=== PATIENT | male | born 1950 | race Caucasian/White ===

== ENCOUNTER 2021-11-25 13:00 | Outpatient (RCR) | payer MEDICARE, OTHER, SELFPAY ==
--- NOTE | 2021-11-11 14:30 | RT.EKG_ITS ---
APPROVED REPORT Exam: Resting ECG Reason for Exam: CARDIAC REHAB BASELINE EKG Patient Location: O HR:73 bpm ECG Measurements Heart Rate 73 AXIS ND 186 P 73 QRSd 121 QRS -4 QT 393 T 70 QTc 433 Conclusion Sinus rhythm...normal P axis, V-rate 50- 99 Ventricular premature complex...V complex w/ short R-R interval Left bundle branch block...QRSd>120, broad/notched R
== END 2021-11-26 23:59 | disposition home or self-care (01) ==
LOC: CR 13:00
PROVIDERS: PCP Family Medicine; Visit Provider Family Medicine
DX: Z51.89 Encounter for other specified aftercare (principal); I25.2 Old myocardial infarction; Z95.5 Presence of coronary angioplasty implant and graft; Z95.0 Presence of cardiac pacemaker
CPT/HCPCS: S9472

== ENCOUNTER 2021-12-14 13:00 | Outpatient (RCR) | payer MEDICARE, OTHER, SELFPAY ==
--- NOTE | 2021-12-14 13:45 | RT.EKG_ITS ---
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
== END 2021-12-26 23:59 | disposition home or self-care (01) ==
LOC: CR 13:00
PROVIDERS: PCP Family Medicine; Visit Provider Internal Medicine Cardiovascular Disease
DX: Z51.89 Encounter for other specified aftercare (principal); I25.2 Old myocardial infarction; Z95.5 Presence of coronary angioplasty implant and graft; Z95.0 Presence of cardiac pacemaker
CPT/HCPCS: S9472

== ENCOUNTER 2021-12-14 14:20 | Emergency (ER) | payer MEDICARE, OTHER, SELFPAY ==
[2021-12-14] VITALS (53 sets, daily range): BP systolic 109–145; BP diastolic 56–93; PULSE 61–102; RESP 10–20; TEMP 36.8–37.2; O2SAT 97–100
--- NOTE | 2021-12-14 14:30 | RT.EKG_ITS ---
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
--- NOTE | 2021-12-14 14:30 | RT.EKG_ITS ---
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
[2021-12-14] MEDS: Aspirin 81 MG CHEW 243 MG CH (14:47)
[2021-12-14 14:52] LABS: Abs Immature Grans 0.01 10^3/uL (0.0-0.06); Absolute Basophil Count 0.04 10^3/uL (0.0-0.2); Absolute Eosinophil Count 0.29 10^3/uL (0.0-0.7); Absolute Lymphocyte Count 1.42 10^3/uL (1.2-3.4); Absolute Monocyte Count 0.79 10^3/uL (0.1-0.8); Absolute Neutrophil Count 3.87 10^3/uL (1.2-6.7); Basophils % 0.6; Eosinophils % 4.5; HCT 42.8 % (40.0-50.0); HGB 13.7 g/dL (13.5-17.5); Immature Grans % 0.2; Lymphocytes % 22.1; MCH 29.7 pg (27.0-33.0); MCV 92.6 fL (80-95); MPV 9.4 fL (8.0-11.0); Monocytes % 12.3; Neutrophils % 60.3; Platelet Count 281 10^3/uL (130-400); RBC 4.62 10^6/uL (4.36-5.78); RDW 12.8 % (11.8-14.1); RDW-SD 43.2 fL; WBC 6.42 10^3/uL (4.4-10.8)
--- NOTE | 2021-12-14 14:59 | ED.GENADUL_ITS ---
Discharge Plan Disposition Patient Disposition: HOME Condition: Stable Discharge Details Clinical Impression: Chest pain Primary Care Provider: Guerrero Rascon ED Provider: Gavino Raines Home Meds and New Rx's Prescriptions: Continued epinephrine [EpiPen] 0.3 mg/0.3 mL auto-injector 0.3 mg IM Q5-15M PRN0RF Rx Instructions: do not exceed 3 doses per episode omega-3 fatty acids [Fish Oil Concentrate] 1,000 mg capsule 1,000 mg PO DAILY 0RF lutein 20 mg capsule 20 mg PO DAILY 0RF Rx Instructions: give with meal/snack aspirin [Adult Low Dose Aspirin] 81 mg tablet,delayed release (DR/EC) 81 mg PO DAILY 0RF atorvastatin 80 mg Tablet 80 mg PO DAILY 0RF pantoprazole 40 mg Tablet,Delayed Release (Dr/Ec) 40 mg PO DAILY 0RF nitroglycerin 0.4 mg Tablet, Sublingual 0.4 mg SUBLINGUAL Q5-15M PRN0RF Rx Instructions: do not exceed 3 doses per episode metoprolol succinate 25 mg Tablet Extended Release 24 Hr 25 mg PO DAILY 0RF cholecalciferol (vitamin D3) [Vitamin D3] 125 mcg (5,000 unit) Tablet 125 mcg PO DAILY 0RF Brilinta 90 mg Tablet 90 mg PO Q12H 0RF Discharge Instructions Instructions: Chest Pain (ED) Additional Instructions: Your rapid cardiac rule out here in the ER was negative, your troponin did not trend upward. You have been asymptomatic the entire time you have been present in the ER. I discussed the case with cardiology from [facility], Dr. Joy. As we discussed he felt as though the most cautious approach would be to admit you to our hospital overnight for observation and to obtain a stress echo tomorrow. However, if you request discharge, he recommends contacting your primary care provider and/or regional production manager to have an outpatient stress echo in the next 24-48 hours. Being discharged does run a higher risk of a bad outcome, including permanent impairment and/or , which you understand and still request discharge. Please watch for new or worsening symptoms and return to the ER for any concerns. Discharge Data Discharge Date/Time-TO BE ENTERED AT DEPARTURE: 12/14/21 20:13 Medical Decision Making Patient is a pleasant 71-year-old male, accompanied by significant other, with chief complaint chest discomfort, fatigue and EKG changes. Patient underwent a cardiac catheterization September 17 of this year. 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 Patient then underwent care with home health and physical therapy. Recently began working with cardiac rehab. Patient was coming in today for routine cardiac rehab and was found to have more fatigability than typical. Patient does have some burning in his chest when he exerts. states that this has been persistent with catheterization in August. However, while the burning in the chest was the same as it has been since his recent PR, it seemed to come on with less exertion than typical. He states that he has been fatigued. Reports that the symptoms have worsened since he received his COVID-19 booster on Tuesday. Tuesday he was quite fatigued but yesterday, he was able to do much more. He denies any shortness of breath. No recent change in medications. Received his continued cardiac care through the [facility] group who has ascending clinic associated with [facility]. Patient does not use any with nitroglycerin. EKG was evaluated in the cardiac rehab center and they were concerned for new lateral wall ST segment depressions. On exam, patient appears nontoxic. Vital signs stable. Normal cardiac auscultation, lungs are clear. Abdomen benign. No lower extremity edema, calf is soft and nontender. 2+ distal pulses in all extremities. EKG from cardiac rehab was reviewed by Dr. Veronica Green. Notable lateral lead ST depression. No ST elevation. Here comparing this to previous EKG. However, on repeat EKG completed here, patient was found to be in a sinus rhythm again with some lateral lead ST depression but much more improved and less dramatic than when patient had the EKG at cardiac rehab when he was exerting himself. Concern for recurrent ACS. Also considered fatigue associated with his recent immunization, chronic fatigue resulting from his PR a few months ago versus other. Patient is on baby aspirin, will augment this full dose. He is on atorvastatin, metoprolol, pantoprazole and ticagrelor. He has not had any missed doses. Has not used his as needed nitroglycerin. We will obtain baseline labs, including troponin. Will repeat chest x-ray. I do not hear evidence of symptoms to be concerning for pulmonary embolism. At the end of my shift, care transition to Lance Raines PA-C with chest x-ray and repeat troponin pending. Initial review of labs shows normal CBC, normal coagulation, CMP significant for slight elevation of AST and ALT, otherwise unremarkable. I assumed care of this 71-year-old gentleman from my colleague GRISELDA Quach, please see her initial HPI and examination. At time of signout awaiting chest x-ray, delta troponin and EKG. At time of signout I personally evaluated the patient and he is asymptomatic. He is agreeable to awaiting a delta troponin. Has no additional questions or concerns. Chest x-ray is unremarkable. Delta troponin remains less than 50. Repeat EKG performed at 1736, please see official report by Dr. Huddleston. Sinus rhythm, ventricular rate of 77. Nonspecific IVCD. Nonspecific ST-T wave abnormalities, no STEMI, no dynamic changes when compared to previous EKG Patient was given his single dose of nightly Brilinta and tolerated p.o. intake without difficulty I had the EKGs faxed to [facility] and requested a cardiology consult but was unsuccessful in obtaining one through this facility. I then had the EKGs faxed to [facility] in [place] and requested a cardiology consultation. I was able to speak with Dr. Joy at 1936. We discussed his work-up today and he was able to review his case and his medical records at his facility. The patient did have a very concerning presentation to his facility back in September. He states that ideally the patient would be observed in our facility overnight and have a stress echo tomorrow however if he does not want to be admitted to our facility he feels as though reaching out his cardiology team tomorrow and setting up a stress echo in the next 24-48 hours is reasonable although increases his risk for poor outcome. He feels as though if this is well articulated with patient and the patient understands this and either option is reasonable. I discussed his work-up this evening with both the patient and his as well as my conversation with Dr. oJy, cardiology. Patient understands the risk of discharge home, permanent disability and/or , but has been asymptomatic since presenting to the ER, feels well, and chooses to be discharged home. St rict discharge and return precautions were provided. This documentation was generated using [employer] system, please disregard any oddities of phrase or misspellings. Medical Records Medical records reviewed: Yes I reviewed the patient's medical records. Imaging Data Radiologic Study: Attestation: I personally reviewed and interpreted this imaging study as follows: Imaging: X-Ray Radiologist's impression: Exam(s) XR CHEST 2V PA LATERAL EXAM: XR CHEST 2V PA LATERAL CLINICAL HISTORY: CP TECHNIQUE: 2D digital imaging was performed. COMPARISON: No exams were available for comparison FINDINGS: MEDIASTINUM: Normal. HEART: Normal size. Pacemaker. PULMONARY VASCULATURE: Normal. LUNGS: Clear. PLEURAL SPACE: No pleural effusion or pneumothorax. BONE:Unremarkable for age. IMPRESSION: No acute abnormality. Lab Data Lab results reviewed: Yes I reviewed the patient's lab results. Labs: Laboratory Tests Range/Units 12/14/21 12/14/21 12/14/21 14:45 14:45 14:45 WBC (4.4-10.8) 10^3/uL 6.42 RBC (4.36-5.78) 10^6/uL 4.62 Hgb (13.5-17.5) g/dL 13.7 Hct (40.0-50.0) % 42.8 MCV (80-95) fL 92.6 MCH (27.0-33.0) pg 29.7 MCHC (32.0-36.0) % 32.0 RDW (11.8-14.1) % 12.8 Plt Count (130-400) 10^3/uL 281 MPV (8.0-11.0) fL 9.4 Immature Gran % 0.2 Neutrophils % 60.3 Lymphocytes % 22.1 Monocytes % 12.3 Eosinophils % 4.5 Basophils % 0.6 Nucleated RBC % (0.0-0.3) % 0.0 Absolute Neutrophils (1.2-6.7) 10^3/uL 3.87 Absolute Lymphocytes (1.2-3.4) 10^3/uL 1.42 Absolute Monocytes (0.1-0.8) 10^3/uL 0.79 Absolute Eosinophils (0.0-0.7) 10^3/uL 0.29 Absolute Basophils (0.0-0.2) 10^3/uL 0.04 PT (9.3-11.0) sec 10.2 INR (0.9-1.1) 1.0 APTT (21.0-27.5) sec 23.0 Sodium (136-145) mmol/L 140 Potassium (3.5-5.1) mmol/L 4.1 Chloride (98-107) mmol/L 103 Carbon Dioxide (21.0-32.0) mmol/L 31.2 Anion Gap (3-11) mmol/L 5.8 BUN (7-18) mg/dL 20 H Creatinine (0.70-1.30) mg/dL 1.1 Estimated GFR/1.73 m2 (mL/min/1.73m2) >= 60.00 Glucose (74-106) mg/dL 128 H Calcium (8.5-10.1) mg/dL 9.2 Magnesium (1.8-2.4) mg/dL 2.0 Total Bilirubin (0.2-1.0) mg/dL 0.4 AST (15-37) U/L 44 H ALT (16-63) U/L 78 H Alkaline Phosphatase (46-116) U/L 94 Troponin I (<or=60) ng/L < 50 Total Protein (6.4-8.2) g/dL 7.9 Albumin (3.4-5.0) g/dL 4.1 Range/Units 12/14/21 17:34 WBC (4.4-10.8) 10^3/uL RBC (4.36-5.78) 10^6/uL Hgb (13.5-17.5) g/dL Hct (40.0-50.0) % MCV (80-95) fL MCH (27.0-33.0) pg MCHC (32.0-36.0) % RDW (11.8-14.1) % Plt Count (130-400) 10^3/uL MPV (8.0-11.0) fL Immature Gran % Neutrophils % Lymphocytes % Monocytes % Eosinophils % Basophils % Nucleated RBC % (0.0-0.3) % Absolute Neutrophils (1.2-6.7) 10^3/uL Absolute Lymphocytes (1.2-3.4) 10^3/uL Absolute Monocytes (0.1-0.8) 10^3/uL Absolute Eosinophils (0.0-0.7) 10^3/uL Absolute Basophils (0.0-0.2) 10^3/uL PT (9.3-11.0) sec INR (0.9-1.1) APTT (21.0-27.5) sec Sodium (136-145) mmol/L Potassium (3.5-5.1) mmol/L Chloride (98-107) mmol/L Carbon Dioxide (21.0-32.0) mmol/L Anion Gap (3-11) mmol/L BUN (7-18) mg/dL Creatinine (0.70-1.30) mg/dL Estimated GFR/1.73 m2 (mL/min/1.73m2) Glucose (74-106) mg/dL Calcium (8.5-10.1) mg/dL Magnesium (1.8-2.4) mg/dL Total Bilirubin (0.2-1.0) mg/dL AST (15-37) U/L ALT (16-63) U/L Alkaline Phosphatase (46-116) U/L Troponin I (<or=60) ng/L < 50 Total Protein (6.4-8.2) g/dL Albumin (3.4-5.0) g/dL HPI General Date/Time Provider Initiated Documentation: 12/14/21 14:29 . Limitations to Documentation: no limitations . Information obtained by: patient, family and RN notes reviewed . History of Present Illness 71 year old M presents to the emergency department with the chief complaint of fatigue, chest discomfort, described as moderate, with intensity rated at 1 (denies discomfort currently). Quality is described as aching, and is localized to the chest. Patient reports no radiation. Patient started experiencing this minute(s) and it has been intermittent. improves with Immobilization improves symptom(s), Movement worsens symptoms . Patient notes chest pain; denies cough, fever/chills, loss of appetite, nausea/vomiting, rash and shortness of breath. Patient did receive the following treatments prior to arrival, none Related Data Home Medications Medication Instructions Recorded Confirmed aspirin 81 mg tablet,delayed 81 mg PO DAILY 03/27/21 12/14/21 release (Adult Low Dose Aspirin) epinephrine 0.3 mg/0.3 mL 0.3 mg IM Q5-15M PRN 03/27/21 12/14/21 injection, auto-injector (EpiPen) lutein 20 mg capsule 20 mg PO DAILY 03/27/21 12/14/21 omega-3 fatty acids 1,000 mg 1,000 mg PO DAILY 03/27/21 12/14/21 capsule (Fish Oil Concentrate) atorvastatin 80 mg tablet 80 mg PO DAILY 12/14/21 12/14/21 cholecalciferol (vitamin D3) 125 125 mcg PO DAILY 12/14/21 12/14/21 mcg (5,000 unit) tablet (Vitamin D3) metoprolol succinate 25 mg 25 mg PO DAILY 12/14/21 12/14/21 tablet,extended release 24 hr nitroglycerin 0.4 mg sublingual 0.4 mg SUBLINGUAL Q5-15M PRN 12/14/21 12/14/21 tablet pantoprazole 40 mg tablet,delayed 40 mg PO DAILY 12/14/21 12/14/21 release ticagrelor 90 mg tablet (Brilinta) 90 mg PO Q12H 12/14/21 12/14/21 Allergies Allergy/AdvReac Type Severity Reaction Status Date / Time bee venom Allergy Severe Anaphylaxis Uncoded 12/14/21 14:58 arugula greens Allergy Uncoded 12/14/21 14:58 General Stated Complaint: Chest Pain PINA: 2 Review of Systems Constitutional Constitutional: Reports as per HPI, Denies fever(s), Denies headache(s) and Denies poor appetite ENT Ears, Nose, Mouth, and Throat: Denies dizziness and Denies headache(s) Cardiovascular Cardiovascular: Reports as per HPI, Denies dyspnea and Denies dyspnea on exertion Respiratory Respiratory: Reports as per HPI, Denies chest congestion, Denies cough, Denies pain on inspiration, Denies dyspnea and Denies dyspnea on exertion Gastrointestinal Gastrointestinal: Reports as per HPI, Denies nausea and Denies vomiting Genitourinary Genitourinary: Denies system reviewed and no additional complaints, except as documented (denies change in urinary habits) Musculoskeletal Musculoskeletal: Reports as per HPI and Denies back pain Integumentary/Breasts Skin/Breast: Reports as per HPI and Denies rash Neurologic Neurologic: Reports as per HPI, Denies dizziness and Denies headache(s) PFSH All Active Problems (Updated 12/14/21 @ 19:56 by GRISELDA Kelsey) Chest pain (Acute) Impacted cerumen, bilateral (Acute) Hx of vasectomy (Acute) H/O varicose vein stripping (Acute) Cerumen impaction (Acute) Medical History Cerumen impaction Surgical History H/O varicose vein stripping Hx of vasectomy Family History Father Heart disease Mother Breast cancer Heart disease Social History Smoking/Tobacco Use Status: Never Smoking risk assessment performed?: Yes Alcohol Intake: current Alcohol Intake frequency: a few times a month Drug use: Never Household members: spouse current occupation: [employer] Pets and animals: Yes Pets and animals: cat(s) and farm animals What is your relationship status?: Panel score (0-1 are the most socially isolated patients): 1 Exam Const General: cooperative, healthy appearing, comfortable, no acute distress and well developed Nutritional Appearance: average body habitus and well nourished Orientation: alert, awake and oriented x3 HENMT Head: normal to inspection Ears: hearing grossly normal bilaterally Mouth: moist mucous membranes Chest Chest: normal inspection of the chest, normal palpation of entire chest wall and no crepitus Resp Effort & Inspection: normal respiratory effort, able to speak in complete sentences and no respiratory distress Auscultation: clear to auscultation bilaterally, no rales, no rhonchi and no wheezes Cardio Rate: regular rate Rhythm: regular rhythm Heart Sounds: S1 normal and S2 normal GI Inspection: normal to inspection, no edema and non-distended Palpation: soft, no hepatosplenomegaly, not firm, no guarding, not rigid and nontender Auscultation: normal bowel sounds Skin General skin exam: no rashes or lesions noted Trauma: no lacerations or abrasions Neuro General: patient alert, patient awake and patient oriented x3 Cognition: normal cognition Speech: speech normal Gait: normal gait Extrem General: normal to inspection, capillary refill normal, no pedal edema, no calf tenderness and normal gait Psych Appearance: grossly normal and well kempt Mental Status: mental status grossly normal Speech and Movement: speech and movement normal Course Vital Signs Vital signs: Vital Signs Temperature 36.8 C 12/14/21 14:38 Pulse 94 H 12/14/21 14:38 Respiratory Rate 16 12/14/21 14:38 Blood Pressure 145/80 H 12/14/21 14:38 Pulse Oximetry 100 12/14/21 14:38 Temperature 36.8 C 12/14/21 14:38 Temperature Source Skin 12/14/21 14:38 Pulse 94 H 12/14/21 14:38 Respiratory Rate 12 12/14/21 14:54 Respiratory Effort Non-Labored 12/14/21 14:54 Respiratory Depth Normal 12/14/21 14:54 Respiratory Pattern Normal 12/14/21 14:54 Blood Pressure 145/80 H 12/14/21 14:38 Blood Pressure Position Sitting 12/14/21 14:38 Pulse Oximetry 100 12/14/21 14:38 Oxygen Delivery Method Room Air 12/14/21 14:38 Oxygen Flow Rate 0 12/14/21 14:38 Pain Level 3 12/14/21 14:54 Lab/Test Results Lab/Test Results: Laboratory Tests Range/Units 12/14/21 14:45 WBC (4.4-10.8) 10^3/uL 6.42 RBC (4.36-5.78) 10^6/uL 4.62 Hgb (13.5-17.5) g/dL 13.7 Hct (40.0-50.0) % 42.8 MCV (80-95) fL 92.6 MCH (27.0-33.0) pg 29.7 MCHC (32.0-36.0) % 32.0 RDW (11.8-14.1) % 12.8 Plt Count (130-400) 10^3/uL 281 MPV (8.0-11.0) fL 9.4 Immature Gran % 0.2 Neutrophils % 60.3 Lymphocytes % 22.1 Monocytes % 12.3 Eosinophils % 4.5 Basophils % 0.6 Nucleated RBC % (0.0-0.3) % 0.0 Absolute Neutrophils (1.2-6.7) 10^3/uL 3.87 Absolute Lymphocytes (1.2-3.4) 10^3/uL 1.42 Absolute Monocytes (0.1-0.8) 10^3/uL 0.79 Absolute Eosinophils (0.0-0.7) 10^3/uL 0.29 Absolute Basophils (0.0-0.2) 10^3/uL 0.04 Sign Out Sign Out Data: Sign Out Comment: Care transitioned to Gavino Raines PA-C with repeat troponin and cxr pending. Patient has hx of recent PR, increased exertional symptoms today with ST depression on lateral leads. ECG here continues to show some depression, improved from previous but still present. Her cardiology team [facility] with [facility], has provider at [facility]. Last updated by Felicity Quach PA at 12/14/21 16:14 PAWSS Have you Been Recently Intoxicated or Drunk Within the Last 30 days?: No Have you Ever Experienced Previous Episodes of Alcohol Withdrawal?: No Have you ever Experienced Withdrawal Seizures?: No Have you ever Experienced Delirium Tremens(DT)s?: No Have you ever undergone Alcohol Rehabilitation Treatment (i.e, inpt ot outpatient treatment programs)?: No Have you ever Experienced Blackouts?: No Have you ever Combined Alcohol with other Downers within the last 90 days?: No Have you ever Combined Alcohol with any other Substance of Abuse during the last 90 days?: No Positive Blood Alcohol level on Presentation? [PCS.BAL]: No Evidence of Increased Autonomic Activity (i.e. HR>120, tremor, sweating, agitation, nausea)?: No Result: 0
[2021-12-14 15:06] LABS: Prothrombin Time 10.2 sec (9.3-11.0)
[2021-12-14 15:10] LABS: ALT 78 U/L (16-63); AST 44 U/L (15-37); Albumin 4.1 g/dL (3.4-5.0); Alkaline Phosphatase 94 U/L (46-116); Anion Gap 5.8 mmol/L (3-11); BUN 20 mg/dL (7-18); Bilirubin, Total 0.4 mg/dL (0.2-1.0); CO2 31.2 mmol/L (21.0-32.0); CREATININE 1.1 mg/dL (0.70-1.30); Calcium 9.2 mg/dL (8.5-10.1); Chloride 103 mmol/L (98-107); Glucose 128 mg/dL (74-106); Potassium 4.1 mmol/L (3.5-5.1); Sodium 140 mmol/L (136-145); Total Protein 7.9 g/dL (6.4-8.2); Troponin I < 50 ng/L (<or=60)
--- NOTE | 2021-12-14 15:40 | DI.RAD_ITS ---
Exam(s) XR CHEST 2V PA LATERAL EXAM: XR CHEST 2V PA LATERAL CLINICAL HISTORY: CP TECHNIQUE: 2D digital imaging was performed. COMPARISON: No exams were available for comparison FINDINGS: MEDIASTINUM: Normal. HEART: Normal size. Pacemaker. PULMONARY VASCULATURE: Normal. LUNGS: Clear. PLEURAL SPACE: No pleural effusion or pneumothorax. BONE:Unremarkable for age. IMPRESSION: No acute abnormality. DATA REPOSITORY: RADIATION DOSE DELIVERED:
[2021-12-14 17:57] LABS: Troponin I < 50 ng/L (<or=60)
== END 2021-12-14 20:13 | disposition home or self-care (01) ==
PROVIDERS: Physician Assistant; Emergency Provider Physician Assistant; PCP Family Medicine
DX: R07.9 Chest pain, unspecified (principal); R53.83 Other fatigue
CPT/HCPCS: 36415; 80053; 93005; 99284; 71046; 83735; 84484; 85025; 85610; 85730; 93010; 99283

== ENCOUNTER → 2021-12-24 01:51 | Outpatient (CLI) | payer MEDICARE, OTHER, SELFPAY ==
--- NOTE | 2021-12-24 15:00 | DI.US_ITS ---
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 Rest Stress HR Resting HR Supine: 72 bpm Max Heart Rate (APMHR): 149 bpm Resting HR Standin bpm Target HR (85% APMHR): 126 bpm Max HR Achieved: 141 bpm % of APMHR: 94 Recovery HR: 89 bpm HR response to stress: Normal HR response to stress Comment: Metoprolol succinate not held for test, last taken this A.M. BP Resting BP Supine: 122/70 mmHg Resting BP Standin/76 mmHg Max BP: 144/80 mmHg Recovery BP: 128/80 mmHg BP response to stress: Normal blood pressure response to stress. ECG Resting ECG: Sinus Rhythm, IVCD, occasionally atrial paced Ectopy: PACs Comment: inverted/flattened T wave in aVL Stress ECG: Sinus Rhythm, IVCD ST Change: No significant ST segment changes noted Arrhythmia: PACs, occasional PVC Comment: inverted T wave in aVL Recovery ECG: Sinus Rhythm Recovery ST Change: Horizontal/Downsloping ST depression Lead(s): I, II, , III, aVF, V6 Recovery ST Deviation: 0.5-1 mm Recovery Arrhythmia: PACs Comment: inverted T wave in aVL Clinical Reason for Termination: Fatigue, lightheadedness, chest burning Stress Symptoms: Lightheaded, chest burning Exercise duration: 08 min14 sec Highest Stage Reached: Stage 3: 3.4 mph at 14% grade. Exercise capacity: 10.16 METs Rate Pressure Product: 30829 Stress ECG Conclusion 1. The resting electrocardiogram showed an IVCD, old anterior infarct 2. The patient exercised on the Kaleb protocol and completed a workload of 10.16 METS. He described chest burning during exercise which was relieved with rest 3. Normal heart rate and blood pressure response to exercise. The patient achieved 94% of predicted heart rate for age 4. EKG with exercise showed QRS widening consistent with a rate related left bundle branch block. Th e electrocardiographic portion of the test was nondiagnostic for ischemia 5. See stress echo report Stress Test Summary STAGE Time (mins) Speed (mph) Grade (%) HR BP SYMPTOMS METS Supine 72 122/70 Standing 72 128/76 1 3 1.7 10 113 140/82 4.6 2 6 2.5 12 136 144/80 4/10 chest burning; mild lightheadedness 7 1 min recovery 108 4/10 chest burning 3 min recovery 89 134/72 1/10 chest burning 6 min recovery 89 128/80 burning sensation resolved. MPI Conclusion This is a stress echocardiogram Resting echo showed an ejection fraction of approximately 50% with akinesis of the septum and anteroa pical segments Post exercise echocardiogram showed persistent akinesis of the septum and anterior apical segments co nsistent with infarction. All other segments demonstrated augmented contractility. Ejection fractio n laurence overall to 55 to 60%. Left ventricular chamber size decreased. No areas of ischemia were phill ntified
== END ==
PROVIDERS: PCP Family Medicine; Visit Provider Physician Assistant Medical
DX: R07.89 Other chest pain (principal); Z86.79 Personal history of other diseases of the circulatory system
CPT/HCPCS: 93306; 93350; 93017

== ENCOUNTER 2022-01-22 13:00 | Outpatient (RCR) | payer MEDICARE, OTHER, SELFPAY | END 2022-01-26 23:59 | disposition home or self-care (01) | LOC: CR 13:00 | PROVIDERS: PCP Family Medicine; Visit Provider Internal Medicine Cardiovascular Disease | DX: Z51.89 Encounter for other specified aftercare (principal); I25.2 Old myocardial infarction; Z95.5 Presence of coronary angioplasty implant and graft; Z95.0 Presence of cardiac pacemaker | CPT/HCPCS: S9472 ==

== ENCOUNTER 2022-02-24 13:00 | Outpatient (RCR) | payer MEDICARE, OTHER, SELFPAY | END 2022-02-25 23:59 | disposition home or self-care (01) | LOC: CR 13:00 | PROVIDERS: PCP Family Medicine; Visit Provider Internal Medicine Cardiovascular Disease | DX: Z51.89 Encounter for other specified aftercare (principal); I25.2 Old myocardial infarction; Z95.5 Presence of coronary angioplasty implant and graft; Z95.0 Presence of cardiac pacemaker | CPT/HCPCS: S9472 ==

== ENCOUNTER 2022-03-05 13:00 | Outpatient (RCR) | payer MEDICARE, OTHER, SELFPAY | END 2022-03-28 23:59 | disposition home or self-care (01) | LOC: CR 13:00 | PROVIDERS: PCP Family Medicine; Referring Provider Family Medicine; Visit Provider Internal Medicine Cardiovascular Disease | DX: I25.2 Old myocardial infarction (principal); Z95.5 Presence of coronary angioplasty implant and graft; Z95.0 Presence of cardiac pacemaker; Z51.89 Encounter for other specified aftercare | CPT/HCPCS: S9472 ==

== ENCOUNTER 2022-09-28 13:00 | Outpatient (RCR) | payer SELFPAY ==
[2022-08-29 00:11] VITALS: BP 121/56; PULSE 64
[2022-08-31 13:00] VITALS: BP 132/66; PULSE 71
[2022-09-02 13:00] VITALS: BP 114/61; PULSE 81
[2022-09-07 13:16] VITALS: BP 119/68; PULSE 65
[2022-09-09 14:11] VITALS: BP 122/70; PULSE 70
[2022-09-14 13:00] VITALS: BP 138/73; PULSE 70
[2022-09-16 12:58] VITALS: BP 121/73; PULSE 76
[2022-09-16 13:10] VITALS: BP 121/76; PULSE 76
[2022-09-21 13:14] VITALS: BP 126/66; PULSE 70
[2022-09-23 13:00] VITALS: BP 117/70; PULSE 71
[2022-09-28 13:23] VITALS: BP 118/60; PULSE 51
== END 2022-09-28 23:59 | disposition home or self-care (01) ==
LOC: CR 13:00
PROVIDERS: PCP Family Medicine; Visit Provider Internal Medicine Cardiovascular Disease
DX: R69 Illness, unspecified (principal)

== ENCOUNTER 2023-06-16 01:14 | Outpatient (CLI) | payer MEDICARE, SELFPAY ==
--- NOTE | 2023-06-16 11:00 | DI.NM_ITS ---
APPROVED REPORT Exam: Pharmacologic Patient Location: Out-Patient Room/Bed: Stress Nurse: Radha Rodriguez RN Ordering Provider:PHIL DOCKERYJOANNEALEXANDRIA BECKOINTE, Contact Number: [phone] BMI: 19.49 Baseline Rhythm: Sinus Rhythm Indications: Exertional chest pain, ischemic dilated CMP Medical History Medical History: CAD in [place] artery, HTN, HLD, ETOH, [place] (STEMI 09/17/21), CHB s/p ppm (dual chamber) , VT arrest Cardiac Medications: Isosorbide mononitrate, metoprolol siccinate, atovastatin, nitroglycerin, aspiri n, vitamin D3. Allergies: Bee venom, [place] Cardiac Risk Factors: Family hx, HTN, HLD, CVD Previous Cardiac Procedures: Hx cardiac stents, pacemaker placement Pretest Chest Pain Characteristics: None Exercise History: Physically active Physical Disabilities: None Lung Sounds: Clear to auscultation Heart Sounds: Regular Stress Test Details Test: Pharmacologic stress testing performed using 0.4 mg of regadenoson per 5 mL given IV over 10 s econds. Reason for pharmacologic stress test: Pacemaker. Nuclear Acquisition: Rest Tc-99m/Stress Tc-99m 1 day Rest Isotope: Tc-99m Sestamibi. Dose: 10.0 Date: 06/16/2023 Injection Time: 1200 Stress Isotope: Tc-99m Sestamibi. Dose: 30.0 Date: 06/16/2023 Injection Time: 1400 HR Resting HR Supine: 65 bpm Max Heart Rate (APMHR): 147.120038 bpm Target HR (85% APMHR): 124.424925 bpm Max HR Achieved: 103 bpm % of APMHR: 70.07 Recovery HR: 86 bpm BP Resting BP Supine: 140/80 mmHg Max BP: 140/80 mmHg Recovery BP: 130/74 mmHg ECG Resting ECG: Sinus Rhythm Ectopy: None Stress ECG: Sinus Rhythm ST Change: Nondiagnostic low heart rate Arrhythmia: None Recovery ECG: Sinus Rhythm Recovery ST Change: Nondiagnostic low heart rate Recovery Arrhythmia: None Clinical Stress Symptoms: 4/10 chest pressure Angina Score: Non-Limiting Rate Pressure Product: 15111 Stress ECG Conclusion 1. Resting electrocardiogram showed atrial pacing and an IVCD 2. Patient underwent testing using pharmacologic stress with regadenoson 3. Peak heart rate achieved was 70% of predicted for age 4. Electrocardiographic portion of the test was nondiagnostic 5. See MPI report Stress Test Summary STAGE HR BP SpO2 Symptoms NOTES Supine 65 140/80 98 1 min post Lexiscan injection 92 138/78 98 3 min post Lexiscan injection 91 124/70 98 4/10 chest pressure 6 min post Lexiscan injection 83 140/78 98 2/10 Chest pressure 9 min post Lexiscan injection 86 130/74 Chest pressure resolved MPI Conclusion There is ischemia of the septum and apex Ejection fraction is 48% Radiologist Interpretation Radiologist agrees with [employer]'s Interpretation. Radiologist Interpretation by: Rajesh Davalos MD Interpretation Date/Time: 06/20/2023 15:16:18
[2023-06-16] MEDS: Regadenoson 0.4 MG/5 ML SYR IVP (13:51)
== END 2023-06-16 01:34 ==
PROVIDERS: PCP Family Medicine; Visit Provider Physician Assistant Medical
DX: R07.9 Chest pain, unspecified (principal); I25.10 Atherosclerotic heart disease of native coronary artery without angina pectoris
CPT/HCPCS: 78452; 93016; 93018; 93017; J2785